=== PATIENT | male | born 1960 | race Caucasian/White ===

== ENCOUNTER 2017-02-22 13:12 | Emergency (ER) | payer OTHER ==
[~2017-02-22] VITALS: Ht 165.1 cm; Wt 67.0 kg
[2017-02-22 13:16] VITALS: BP 108/78; PULSE 77; RESP 16; TEMP 98.3; O2SAT 97
--- NOTE | 2017-02-22 13:31 | PD ---
HPI Chief Complaint: Skin Problem Time Seen by Provider: 13:22 Travel History International Travel<30 days: No Contact w/Intl Traveler<30days: No Traveled to known affect area: No History of Present Illness HPI 56-year-old male presents to the emergency department for evaluation of right hand fifth finger pain and swelling for 1 day. Patient states yesterday he was reaching for something on the top shelf in his shed with his right hand and felt a sudden pain in his right fifth finger. States "it felt as though a hammer fell on it" but denies anything falling or any traumatic injury to his finger. States he thinks maybe a spider bit his finger. States he has some redness and swelling to the distal aspect of the finger and that he's unable to straighten it at this location. He denies any fever, chills, numbness or tingling. No other complaints. PFSH Past Medical History Hx Anticoagulant Therapy: No Bipolar Disorder: Yes Depression: Yes Cancer: No Cardiovascular Problems: No Chemotherapy: No Cerebrovascular Accident: No Diabetes: No Diminished Hearing: Yes Endocrine: No Genitourinary: No Hepatitis: No Hiatal Hernia: No Hypertension: Yes (UNDX) Immune Disorder: No Musculoskeletal: No Neurologic: No Psychiatric: Yes Reproductive: No Respiratory: No Immunizations Current: No Thyroid Disease: No Past Surgical History AICD: No Joint Replacement: No Pacemaker: No Other Surgery: Yes (I & D - SCROTUM/PLASTIC SURGERY) Social History Alcohol Use: Yes Tobacco Use: Yes (1/2 PPD ) Substance Use: Yes (ALCOHOL) Allergies-Medications (Allergen,Severity, Reaction): Coded Allergies: No Known Allergies (Verified , 02/22/17) Reported Meds & Prescriptions Reported Meds & Active Scripts Active Naproxen 500 Mg Tab 500 Mg PO BID 10 Days Keflex (Cephalexin) 500 Mg Cap 500 Mg PO Q6H 10 Days Bactrim DS (Sulfamethoxazole-Trimethoprim) 800-160 Mg Tab 1 Tab PO BID Review of Systems Except as stated in HPI: all other systems reviewed are Neg Physical Exam Narrative GENERAL: Well-nourished and well-developed female patient in no acute distress who is nontoxic appearing. SKIN: Warm and dry. HEAD: Normocephalic and atraumatic. EYES: No injection, drainage, or hyphema noted. PERRLA. EOMI. ENT: No nasal drainage noted. Oropharynx is clear. NECK: Supple and the trachea is midline. CARDIOVASCULAR: Regular rate and rhythm. RESPIRATORY: Breath sounds are equal bilaterally with no accessory muscle use, wheezing, rhonchi, or crackles. EXTREMITY: Right hand fifth finger with swelling and erythema at the dorsal fifth finger. Limited active range of motion in the right fifth DIP joint over full active range of motion. Full range of motion in all other joints. Normal opposition of thumb. Distal extremity neurovascularly intact with intact two point discrimination. NEUROLOGICAL: Awake, alert, and oriented. Normal speech and gait. Cranial nerves are grossly intact. Data Data Last Documented VS Vital Signs Date Time Temp Pulse Resp B/P Pulse Ox O2 Delivery O2 Flow Rate FiO2 02/22/17 13:16 98.3 77 16 108/78 97 Orders Finger ([id number]) (02/22/17 13:22) [facility] Medical Decision Making Medical Screen Exam Complete: Yes Emergency Medical Condition: Yes Differential Diagnosis Sprain versus cellulitis versus tendinitis versus other Narrative Course 56-year-old male presents to the emergency department for evaluation of redness , swelling and pain of the right fifth finger for one day. Patient is afebrile , vital signs are stable. X-ray of the right fifth finger is negative for any acute abnormalities. The area is red and a little warm to touch, he may have some early infection. We'll place the patient on Bactrim and Keflex and place him in a finger splint. Discussed supportive care and when to return to the emergency department. Patient verbalizes understanding and agreement with treatment plan. I discussed the case with my attending physician Dr. Nance who is aware of the patients history, physical examination findings, and treatment plan. Diagnosis Primary Impression: Swelling of right little finger Referrals: Primary Care Physician Patient Instructions: General Instructions Additional Instructions: Finger splint. Take medications as prescribed with food and a full glass of water. Follow-up with your Primary Care Physician. Return to the ED for any acute worsening of symptoms. Med/Other Pt SpecificInfo: Prescription(s) given Scripts Naproxen 500 Mg [id number] Mg PO BID 10 Days Ref 0 Prov:Burton Nance MD 02/22/17 Cephalexin (Keflex)500 Mg [id number] Mg PO Q6H 10 Days Ref 0 Prov:Burton Nance MD 02/22/17 Sulfamethoxazole-Trimethoprim (Bactrim DS)800-160 Mg Tab1 Tab PO BID #20 TAB Ref 0 Prov:Burton Nance MD 02/22/17 Disposition: 01 DISCHARGE HOME Condition: Stable Yanna Pinto February 22, 2017 13:31
[2017-02-22] MEDS ORDERED: NAPR500T PO (13:42)
[2017-02-22] MEDS ORDERED: CEPH-460 PO (13:42)
[2017-02-22] MEDS ORDERED: BACT800T5 PO (13:42)
--- NOTE | 2017-02-22 13:43 | RADHPO ---
EXAM DATE/TIME: 02/22/2017 13:28 [facility] COMPARISON: No previous studies available for comparison. INDICATIONS : Right fifth digit pain and swelling after pulling boxes off a shelf MEDICAL HISTORY : None. SURGICAL HISTORY : None. ENCOUNTER: Initial ACUITY: 2 days PAIN SCORE: 6/10 LOCATION: Right entire fifth digit FINDINGS: Examination of the fifth digit of the right hand demonstrates no evidence of fracture or dislocation. No radiopaque foreign bodies are seen. The soft tissues are intact. CONCLUSION: Unremarkable examination of the right fifth finger. Bautista Chapman MD on February 22, 2017 at 13:41 Board Certified Radiologist. This report was verified electronically.
== END 2017-02-22 13:55 | disposition home or self-care (01) ==
LOC: PHEFT 13:12
DX: M79.89 Other specified soft tissue disorders (principal); I10 Essential (primary) hypertension; F17.210 Nicotine dependence, cigarettes, uncomplicated
CPT/HCPCS: 29130; 73140

== ENCOUNTER 2017-03-17 14:25 | Emergency (ER) | payer SELFPAY ==
[~2017-03-17] VITALS: Ht 167.6 cm; Wt 66.0 kg
[~2017-03-17 14:25] MED LIST: BACT800T5 PO; CEPH-460 PO; NAPR500T PO
[2017-03-17 14:27] VITALS: BP 153/83; PULSE 82; RESP 18; TEMP 99; O2SAT 97
--- NOTE | 2017-03-17 14:33 | PD ---
Physical Exam Time Seen by Provider: 14:31 Narrative 56 y/o male presents for right sided/substernal chest, arm pain which started this morning. Vital signs reviewed. Seen at triage desk. Awaiting bed placement. Data Data Last Documented VS Vital Signs Date Time Temp Pulse Resp B/P Pulse Ox O2 Delivery O2 Flow Rate FiO2 03/17/17 14:27 99.0 82 18 153/[address] [facility] Medical Record Reviewed: Yes Supervised Visit with ALICE: Francisco Melchor March 17, 2017 14:33
[2017-03-17 15:21] VITALS: PULSE 68; O2SAT 98
[2017-03-17] MEDS ORDERED: IBUP800T23 PO (15:21)
[2017-03-17] MEDS ORDERED: ROBA500T PO (15:21)
--- NOTE | 2017-03-17 15:25 | PD ---
HPI Chief Complaint: Musculoskeletal Complaint Time Seen by Provider: 15:18 Travel History International Travel<30 days: No Contact w/Intl Traveler<30days: No Traveled to known affect area: No History of Present Illness HPI 56-year-old male presents to emergency Department with complaint of right lateral rib cage pain that extends to his right thoracic back that he woke up with this morning. Denies injury. Denies heavy lifting or strain. Denies chest pain, shortness of breath, hemoptysis. Denies fever, vomiting. Has not taken any medications or or tried any treatments to alleviate his symptoms. Pain is worse with palpation and movement. Has no other medical complaints. No other modifying factors or associated signs and symptoms. PFSH Past Medical History Hx Anticoagulant Therapy: No Bipolar Disorder: Yes Depression: Yes Cancer: No Cardiovascular Problems: No Chemotherapy: No Cerebrovascular Accident: No Diabetes: No Diminished Hearing: Yes Endocrine: No Genitourinary: No Hepatitis: No Hiatal Hernia: No Hypertension: Yes (UNDX) Immune Disorder: No Musculoskeletal: No Neurologic: No Psychiatric: Yes Reproductive: No Respiratory: No Immunizations Current: No Thyroid Disease: No Past Surgical History AICD: No Joint Replacement: No Pacemaker: No Other Surgery: Yes (I & D - SCROTUM/PLASTIC SURGERY) Social History Alcohol Use: No (denies) Tobacco Use: Yes (1/2 PPD ) Substance Use: Yes (ALCOHOL) Allergies-Medications (Allergen,Severity, Reaction): Coded Allergies: No Known Allergies (Verified , 02/22/17) Reported Meds & Prescriptions Reported Meds & Active Scripts Active Robaxin (Methocarbamol) 500 Mg Tab 500 Mg PO QID PRN Ibuprofen 800 Mg Tab 800 Mg PO Q6HR PRN Naproxen 500 Mg Tab 500 Mg PO BID 10 Days Keflex (Cephalexin) 500 Mg Cap 500 Mg PO Q6H 10 Days Bactrim DS (Sulfamethoxazole-Trimethoprim) 800-160 Mg Tab 1 Tab PO BID Review of Systems Except as stated in HPI: all other systems reviewed are Neg Physical Exam Narrative GENERAL: Well-nourished, well-developed male patient, in no acute distress SKIN: Warm and dry. HEAD: Atraumatic. Normocephalic. EYES: Pupils equal and round. No scleral icterus. No injection or drainage. ENT: Mucosa pink and moist. NECK: Trachea midline. CHEST: Right lateral rib cage with reproducible tenderness that extends to the right thoracic back area; no crepitance or deformity. No retractions or use of accessory muscles. CARDIOVASCULAR: Regular rate and rhythm. No murmur appreciated. RESPIRATORY: No accessory muscle use. Clear to auscultation. Breath sounds equal bilaterally. No retractions or tachypnea. GASTROINTESTINAL: Flat. MUSCULOSKELETAL: No obvious deformities. No clubbing. No cyanosis. No edema. BACK: Tenderness to the right lateral musculature of the thoracic area. NEUROLOGICAL: Awake and alert. Oriented 3. No obvious cranial nerve deficits. Motor grossly within normal limits. Normal speech. Moves all extremities. 5/5 strength to all extremities. PSYCHIATRIC: Appropriate mood and affect; insight and judgment normal. Data Data Last Documented VS Vital Signs Date Time Temp Pulse Resp B/P Pulse Ox O2 Delivery O2 Flow Rate FiO2 03/17/17 15:21 68 98 03/17/17 14:27 99.0 18 153/83 Room Air Orders Electrocardiogram (03/17/17 ) Ketorolac Inj (Toradol Inj) (03/17/17 15:30) Orphenadrine Inj (Norflex Inj) (03/17/17 15:30) MDM Medical Decision Making Medical Screen Exam Complete: Yes Emergency Medical Condition: Yes Medical Record Reviewed: Yes Differential Diagnosis Muscle strain, rib cage pain, back strain Narrative Course 56-year-old male physical exam consistent with right-sided thoracic back pain and possible muscle strain. Patient denies injury. Pain is reproducible on palpation and with movement. I will treat the patient for possible muscle strain. Discussed reasons for the patient to return to the emergency department. Toradol and Norflex administered in the ER. Robaxin and ibuprofen prescribed for home. Patient verbalizes understanding and agreement with treatment plan. Patient is medically cleared and stable for discharge. Discussed reasons to return to the emergency department. Instructed patient to follow up with primary care provider. Patient agrees with treatment plan. The patients vital signs are stable and the patient is stable for outpatient follow- up and treatment. Patient discharged home, stable and in no acute distress. Diagnosis Primary Impression: Right-sided thoracic back pain Qualified Code: M54.6 - Right-sided thoracic back pain, unspecified chronicity Referrals: Primary Care Physician Patient Instructions: Chest Wall Pain (ED), General Instructions, Muscle Strain (ED) Departure Forms: Tests/Procedures, Work Release Enter return to work date: March 20, 2017 Additional Instructions: Tylenol or ibuprofen as directed and as needed to reduce pain Robaxin as prescribed for muscle spasms Get adequate rest Ice and/or heating pad to affected area to reduce pain Avoid aggravating activity; increase activity as tolerated Follow-up with primary care provider Return to the emergency department immediately with worsening symptoms, particularly as discussed Med/Other Pt SpecificInfo: Prescription(s) given Scripts Methocarbamol (Robaxin)500 Mg [id number] Mg PO QID PRN (MUSCLE SPASM) #30 TAB Ref 0 Prov:Yanna Anderson 03/17/17 Ibuprofen 800 Mg [id number] Mg PO Q6HR PRN (PAIN) #30 TAB Ref 0 Prov:Yanna Anderson 03/17/17 Disposition: 01 DISCHARGE HOME Condition: Stable Yanna Anderson March 17, 2017 15:25
[2017-03-17] MEDS ORDERED: KETOROLAC TROMETHAMINE 60 MG/2 ML (IM) VIAL IM ONE (15:30)
[2017-03-17] MEDS ORDERED: ORPHENADRINE INJ 60 MG/2 ML AMP IM ONE (15:30)
--- NOTE | 2017-03-18 16:33 | EKG ---
Date Performed: 03/17/2017 Time Performed: 14:42:28 PTAGE: 56 years EKG: Sinus rhythm LEFT ATRIAL ENLARGEMENT ABNORMAL ECG Since PREVIOUS TRACING 01/14/2015, atrial abnormalities are new, otherwise no significant marquez ge. PREVIOUS TRACIN01/14/2015 06.17 DOCTOR: Leonardo Jacobo Interpretating Date/Time 03/18/2017 16:30:51
== END 2017-03-17 15:57 | disposition home or self-care (01) ==
LOC: NEPD 14:25
DX: M54.6 Pain in thoracic spine (principal)
CPT/HCPCS: 93005; 96372; 99284; J1885; J2360

== ENCOUNTER 2017-03-29 22:49 | Emergency (ER) | payer SELFPAY ==
[~2017-03-29] VITALS: Ht 167.6 cm; Wt 64.5 kg
[~2017-03-29 22:49] MED LIST changes: +IBUP800T23 PO; +ROBA500T PO
[2017-03-29 22:55] VITALS: BP 157/95; PULSE 66; RESP 14; TEMP 98; O2SAT 98
--- NOTE | 2017-03-29 23:29 | PD ---
HPI Chief Complaint: Fall Time Seen by Provider: 23:22 Travel History International Travel<30 days: No Contact w/Intl Traveler<30days: No Traveled to known affect area: No History of Present Illness HPI 56-year-old male presents to the emergency department by private transportation for evaluation of right-sided rib pain status post fall. Reportedly at 10 AM this morning while climbing a ladder approximately 10 feet off ground he fell. Patient states he landed on a curb. Patient states he hit his head but did not have loss of consciousness. Patient denies any neck pain. Patient states due to persistent right-sided rib pain and coughing up blood just prior to arrival to the emergency department 5 decided to come to the emergency room for evaluation. Patient states he's taken no medication for symptom relief. Patient denies previous history of injury. Patient denies any abdominal pain. Patient does not report any shortness of breath. Patient rates pain 10 over 10 intensity. Patient is also experienced some dizziness. Patient does not report any upper extremity or lower extremity numbness tingling or weakness. No abdominal pain no pelvic pain. PFSH Past Medical History Narrative Medical Bipolar disorder depression hypertension nasal fracture right hip injury tendinitis scrotal I&D septoplasty alcohol use tobacco use nursing notes reviewed Hx Anticoagulant Therapy: No Bipolar Disorder: Yes Depression: Yes (HX OF SUICIDAL IDEATION) Cancer: No Cardiovascular Problems: No Chemotherapy: No Cerebrovascular Accident: No Diabetes: No Diminished Hearing: Yes Endocrine: No Genitourinary: No Hepatitis: No Hiatal Hernia: No Hypertension: Yes (UNDX) Immune Disorder: No Musculoskeletal: Yes (SINUS/NASAL FX: 12/31/14, RIGHT ROTATOR CUFF TENDINITIS) Neurologic: No Psychiatric: Yes Reproductive: No Respiratory: No Immunizations Current: No Thyroid Disease: No Influenza Vaccination: No Past Surgical History AICD: No Genitourinary Surgery: Yes (SCROTAL I+D) Joint Replacement: No Pacemaker: No Other Surgery: Yes (wrist, nasal plastic sx) Social History Alcohol Use: Yes ("ONCE A WEEK") Tobacco Use: Yes ( a pk every 3 days) Substance Use: No Allergies-Medications (Allergen,Severity, Reaction): Coded Allergies: No Known Allergies (Verified , 03/29/17) Reported Meds & Prescriptions Reported Meds & Active Scripts Active Robaxin (Methocarbamol) 750 Mg Tab 750 Mg PO Q6HR Ibuprofen 800 Mg Tab 800 Mg PO Q6HR PRN Review of Systems Except as stated in HPI: all other systems reviewed are Neg General / Constitutional: No: Fever, Chills Eyes: No: Visual changes HENT: No: Headaches, Neck Pain Cardiovascular: Positive: Chest Pain or Discomfort, No: Diaphoresis, Syncope Respiratory: Positive: Pleuritic Pain, No: Shortness of Breath Gastrointestinal: No: Nausea, Abdominal Pain Genitourinary: No: Hematuria, Flank Pain Musculoskeletal: Positive: Myalgias, Arthralgias Skin: No Rash Neurologic: No: Weakness Psychiatric: No: Anxiety Hematologic/Lymphatic: No: Lymph Node Enlargement Physical Exam Narrative GENERAL: Well-developed well-nourished male in acute distress no respiratory distress; GCS 15 SKIN: Warm and dry. HEAD: Atraumatic. Normocephalic. No scalp soft tissue swelling or bony step- off no abrasion or laceration. EYES: Pupils equal and round. Extraocular muscles intact. No scleral icterus. No injection or drainage. ENT: No nasal bleeding or discharge. Mucous membranes pink and moist. NECK: Trachea midline. No JVD. No midline tenderness to direct palpation along the cervical spine no bony step-off CARDIOVASCULAR: Regular rate and rhythm. Chest wall: Tender to palpation along the right lateral anterior chest wall without ecchymosis abrasion crepitus bony point tenderness or step-off. RESPIRATORY: No accessory muscle use. Clear to auscultation. Breath sounds equal bilaterally. GASTROINTESTINAL: Abdomen soft, non-tender, nondistended. Hepatic and splenic margins not palpable. MUSCULOSKELETAL: Extremities without clubbing, cyanosis, or edema. No obvious deformities. NEUROLOGICAL: Awake and alert. No obvious cranial nerve deficits. Motor grossly within normal limits. Five out of 5 muscle strength in the arms and legs. Normal speech. PSYCHIATRIC: Appropriate mood and affect; insight and judgment normal. Data Data Last Documented VS Vital Signs Date Time Temp Pulse Resp B/P Pulse Ox O2 Delivery O2 Flow Rate FiO2 03/30/17 00:23 57 16 148/80 98 Room Air 03/29/17 22:55 98.0 Orders ^ Saline Lock (03/29/17 23:22) Ribs, Uni (W/Exp Cxr-Min 3vw) (03/29/17 ) Ct Brain W/O Iv Contrast(Rout) (03/29/17 ) Ct Cerv Spine W/O Contrast (03/29/17 ) Comprehensive Metabolic Panel (03/29/17 23:22) Urinalysis - C+S If Indicated (03/29/17 23:22) Alcohol (Ethanol) (03/29/17 23:22) Magnesium (Mg) (03/29/17 23:22) Ketorolac Inj (Toradol Inj) (03/30/17 00:30) Sodium Chlor 0.9% 1000 Ml Inj (Ns 1000 M (03/30/17 00:30) Acetamin-Hydrocod 325-5 Mg ([place] 5-325 (03/30/17 01:00) Labs Laboratory Tests Test 03/29/17 23:35 Urine Color YELLOW Urine Turbidity CLEAR Urine pH 5.5 Urine Specific Bell 1.017 Urine Protein NEG mg/dL Urine Glucose (UA) NEG mg/dL Urine Ketones NEG mg/dL Urine Occult Blood NEG Urine Nitrite NEG Urine Bilirubin NEG Urine Leukocyte Esterase NEG Urine RBC 0-2 /hpf Urine WBC 0-2 /hpf Urine Squamous Epithelial 0-5 /hpf Cells Urine Bacteria NONE /hpf Microscopic Urinalysis Comment CULT NOT INDICATED Sodium Level 140 MEQ/L Potassium Level 4.1 MEQ/L Chloride Level 107 MEQ/L Carbon Dioxide Level 24.4 MEQ/L Anion Gap 9 MEQ/L Blood Urea Nitrogen 15 MG/DL Creatinine 1.10 MG/DL Estimat Glomerular Filtration 70 ML/MIN Rate Random Glucose 95 MG/DL Calcium Level 9.0 MG/DL Magnesium Level 2.5 MG/DL Total Bilirubin 0.1 MG/DL Aspartate Amino Transf 22 U/L (AST/SGOT) Alanine Aminotransferase 24 U/L (ALT/SGPT) Alkaline Phosphatase 67 U/L Total Protein 7.7 GM/DL Albumin 3.7 GM/DL Ethyl Alcohol Level LESS THAN 3 MG/DL MDM Medical Decision Making Medical Screen Exam Complete: Yes Emergency Medical Condition: Yes Medical Record Reviewed: Yes Interpretation(s) Urinalysis: Values within normal limits no blood Complete metabolic panel with magnesium: Values in normal range Serum alcohol: Less than 3, not elevated Vital Signs Date Time Temp Pulse Resp B/P Pulse Ox O2 Delivery O2 Flow Rate FiO2 03/30/17 00:23 57 16 148/80 98 Room Air 03/29/17 23:13 Room Air 03/29/17 22:55 98.0 66 14 157/95 98 Right rib xr: nabi no pneumothorax CT brain w/o: No trauma bleed or fracture per reading radiologist CT cervical spine without contrast no fracture or acute bony abnormality per reading radiologist Differential Diagnosis Rib contusion, rib fracture, pneumothorax, ICH, CHI, intra-abdominal contusion, flank/renal contusion Narrative Course IV access obtained specimens collected and sent for resulting imaging studies ordered Patient administered IV Toradol and IV fluids Rib x-ray reveals no pneumothorax or displaced rib fracture; suspect possible occult or hairline fracture of the ribs due to mechanism of injury causing chest wall pain/pleuritic pain encouraged to return immediately to the emergency department for sudden onset shortness of breath or rib pain after forceful cough sneeze or twisting movement as may need repeat imaging to exclude pneumothorax. Patient given Lortab times one dose Patient stable for outpatient management Diagnosis Primary Impression: Chest wall contusion Qualified Code: S20.211A - Chest wall contusion, right, initial encounter Additional Impressions: Minor head injury without loss of consciousness Qualified Code: S09.90XA - Minor head injury without loss of consciousness, initial encounter Fall Qualified Code: W19.XXXA - Fall, initial encounter Referrals: [facility] call for appointment Primary Care Physician call for appointment Patient Instructions: General Instructions Additional Instructions: Use ice intermittently to areas of soft tissue swelling and injury fever started to 24 hours then moist heat May use as tolerated acetaminophen and/or ibuprofen per package directions for pain or for fever 100.4F or greater May use muscle relaxant as prescribed as needed per prescription directions Do not drink alcoholic beverages if taking muscle relaxant Follow-up with primary care provider or [facility] clinic Return to the emergency department for any concerns or change in condition; return immediately to the nearest emergency department for sudden onset shortness breath after forceful cough, sneeze, laugh, or twisting type motion causing increased pain to the chest wall. No work 3 days Med/Other Pt SpecificInfo: Prescription(s) given Scripts Methocarbamol (Robaxin)750 Mg [id number] Mg PO Q6HR #12 TAB Ref 0 Prov:Rosalind Knight MD 03/30/17 Disposition: 01 DISCHARGE HOME Condition: Stable Rosalind Knight MD Mar 29, 2017 23:29
[2017-03-29 23:47] LABS: BLOOD, URINE NEG (NEG); GLUCOSE,URINE NEG (NEG); KETONE, URINE NEG (NEG); NITRITE,URINE NEG (NEG); PH, URINE 5.5 (5.0-8.5)
[2017-03-29 23:58] LABS: CHLORIDE 107 MEQ/L (98-107); POTASSIUM 4.1 MEQ/L (3.5-5.1); SODIUM (NA) 140 MEQ/L (136-145)
[2017-03-29 23:59] LABS: URINE COLOR YELLOW (YELLW/STRAW)
[2017-03-30] LABS: COMMENT (UR) CULT NOT INDICATED; CULTURE IF INDICATED CULT NOT INDICATED; RBC, URINE 0-2 /hpf (0-3); SQUAMOUS EPITHELIAL CELL URINE 0-5 /hpf (0-5); WBC, URINE 0-2 /hpf (0-5)
[2017-03-30 00:02] LABS: ANION GAP 9 MEQ/L (5-15); BICARBONATE 24.4 MEQ/L (21.0-32.0); BLOOD UREA NITROGEN 15 MG/DL (7-18); MAGNESIUM 2.5 MG/DL (1.5-2.5)
[2017-03-30 00:04] LABS: ALT (GPT) 24 U/L (12-78); AST (GOT) 22 U/L (15-37)
[2017-03-30 00:05] LABS: GLOMERULAR FILTRATION RATE 70 ML/MIN (>89)
[2017-03-30 00:06] LABS: TOTAL BILIRUBIN ADULT 0.1 MG/DL (0.2-1.0)
[2017-03-30 00:07] LABS: ALKALINE PHOSPHATASE 67 U/L (45-117)
--- NOTE | 2017-03-30 00:07 | RADHPO ---
EXAM DATE/TIME: 03/29/2017 23:36 [facility] COMPARISON: No previous studies available for comparison. INDICATIONS : Right sided rib pain post fall from ladder today MEDICAL HISTORY : None. SURGICAL HISTORY : None. ENCOUNTER: Initial ACUITY: 1 day PAIN SCORE: 10/10 LOCATION: Right lower anterior and axillary ribs FINDINGS: Multiple views of the right ribs were performed. There is no evidence of displaced fracture. No melinda tructive lesions or areas of periosteal thickening are seen. Expiratory view of the chest is negativ e for pneumothorax. The mediastinal structures are midline. CONCLUSION: Unremarkable examination of the right ribs and chest. Burton Fink MD on March 30, 2017 at 0:05 Board Certified Radiologist. This report was verified electronically.
--- NOTE | 2017-03-30 00:10 | RADHPO ---
EXAM DATE/TIME: 03/29/2017 23:40 [facility] COMPARISON: CT BRAIN W/O CONTRAST, December 31, 2014, 8:52. INDICATIONS : Trauma, fall from ladder. RADIATION DOSE: 64.10 CTDIvol (mGy) MEDICAL HISTORY : None SURGICAL HISTORY : None. ENCOUNTER: Initial ACUITY: 1 day PAIN SCALE: 0/10 LOCATION: cranial TECHNIQUE: Multiple contiguous axial images were obtained of the head. Using automated exposure control and adj ustment of the mA and/or kV according to patient size, radiation dose was kept as low as reasonably a chievable to obtain optimal diagnostic quality images. FINDINGS: CEREBRUM: The ventricles are normal for age. No evidence of midline shift, mass lesion, hemorrhage or acute in farction. No extra-axial fluid collections are seen. POSTERIOR FOSSA: The cerebellum and brainstem are intact. The 4th ventricle is midline. The cerebellopontine angle i s unremarkable. EXTRACRANIAL: The visualized portion of the orbits is intact. SKULL: The calvaria is intact. No evidence of skull fracture. CONCLUSION: Normal examination. Burton Fink MD on March 30, 2017 at 0:08 Board Certified Radiologist. This report was verified electronically.
--- NOTE | 2017-03-30 00:11 | RADHPO ---
EXAM DATE/TIME: 03/29/2017 23:40 [place] COMPARISON: CT CERVICAL SPINE W/O CONTRAST, December 31, 2014, 8:52. INDICATIONS : Trauma, fall. RADIATION DOSE: 26.15 CTDIvol (mGy) MEDICAL HISTORY : None SURGICAL HISTORY : None. ENCOUNTER: Initial ACUITY: 1 day PAIN SCALE: 0/10 LOCATION: neck TECHNIQUE: Volumetric scanning of the cervical spine was performed. Multiplanar reconstructions in the sagittal, coronal and oblique axial planes were performed. Using automated exposure control and adjustment o f the mA and/or kV according to patient size, radiation dose was kept as low as reasonably achievable to obtain optimal diagnostic quality images. FINDINGS: VERTEBRAE: Normal vertebral body height. ALIGNMENT: No evidence of subluxation. C2-C3: The bony spinal canal is normal in size. No evidence of disc bulge or herniation. The neural forami na are bilaterally patent. C3-C4: The bony spinal canal is normal in size. No evidence of disc bulge or herniation. The neural forami na are bilaterally patent. C4-C5: The bony spinal canal is normal in size. No evidence of disc bulge or herniation. The neural forami na are bilaterally patent. C5-C6: The bony spinal canal is normal in size. No evidence of disc bulge or herniation. The neural forami na are bilaterally patent. C6-C7: The bony spinal canal is normal in size. No evidence of disc bulge or herniation. The neural forami na are bilaterally patent. C7-T1: The bony spinal canal is normal in size. No evidence of disc bulge or herniation. The neural forami na are bilaterally patent. CONCLUSION: Normal examination. Burton Fink MD on March 30, 2017 at 0:10 Board Certified Radiologist. This report was verified electronically.
[2017-03-30 00:23] VITALS: BP 148/80; PULSE 57; RESP 16; O2SAT 98
[2017-03-30] MEDS ORDERED: SODIUM CHLOR 0.9% 1000 ML INJ 1,000 ML IV ONE (00:30)
[2017-03-30] MEDS ORDERED: KETOROLAC TROMETHAMINE 30 MG/ML (IVP) VIAL IV PUSH ONE (00:30)
[2017-03-30] MEDS ORDERED: ROBA750T PO (00:33)
[2017-03-30] MEDS ORDERED: ACETAMINOPHEN/HYDROcodone 325 MG/5 MG TAB PO ONE (01:00)
== END 2017-03-30 01:00 | disposition home or self-care (01) ==
LOC: PHED 22:49
DX: S20.211A Contusion of right front wall of thorax, initial encounter (principal); S09.90XA Unspecified injury of head, initial encounter; W11.XXXA Fall on and from ladder, initial encounter
CPT/HCPCS: 70450; 71101; 72125; 80053; 80307; 81001; 83735; 96374; 99285; J1885; J7030

== ENCOUNTER 2018-05-17 00:36 | Observation (INO) ==
[2018-05-17] MEDS ORDERED: Sodium Chlor 0.9% Inj 500 ML IV.SIG ONE (00:40)
[2018-05-17] MEDS ORDERED: Morphine Inj 4 MG/ML Vial IV.PUSH ONE (00:40)
--- NOTE | 2018-05-17 00:45 | ED ---
HPI General Chief Complaint: Chest Pain Stated Complaint: Cardiac Time Seen by Provider: 05/17/18 00:40 Source: patient Mode of arrival: EMS Limitations: no limitations History of Present Illness HPI narrative: Patient called 911 as he was experiencing an onset of substernal chest pressure rated as an 8 out of 10 while he was at rest, upon arrival of EMS , patient was given aspirin 324 mg p.o., and 2 nitroglycerin sprays the patient' s pain did not seem to decrease much it only decreased down to 6 out of 10 by the time he arrived at the ER. Patient states that the last time he had a stress test was over 10 years ago. He has not followed up with any exceptional children teacher nor with does he have any primary care physicians at this time. Patient does smoke half a pack a day of cigarettes MD complaint: chest pain Complete Quality Measures for STEMI Alert Patients STEMI Alert: No Onset (ago): hour(s) (1) Duration: constant and progressively worsening Onset: during rest Pain location: substernal and left chest Severity: moderate Severity scale (1-10): 8 Quality: tightness Pain radiation: none Relieving factors: nothing Exacerbating factors: nothing Treatments prior to arrival chest pain: aspirin and nitroglycerin Related Data Allergies Allergy/AdvReac Type Severity Reaction Status Date / Time No Known Allergies Allergy Uncoded 03/29/17 22:58 Review of Systems Except as stated in HPI: all other systems reviewed are negative PMFSH History History Provided By: Patient Social History Social History Substance History: No History of Abuse Second Hand Smoke Exposure: No Smoking Status: Current every day smoker Tobacco Type: Cigarettes How Often Do You Have a Drink Containing Alcohol: 4 or more times a week Recent Travel in [facility] within the Last 8 Weeks: No Recent Out of Country Travel within the Last 8 Weeks: No Exam Narrative Exam Narrative: GENERAL: Well-nourished, well-developed patient in no apparent distress. SKIN: Warm and dry. HEAD: Atraumatic. Normocephalic. EYES: Pupils equal and round. No scleral icterus. No injection or drainage. ENT: No nasal bleeding or discharge. Mucous membranes pink and moist. NECK: Trachea midline. No JVD. CARDIOVASCULAR: Regular rate and rhythm. no rubs or gallops RESPIRATORY: No accessory muscle use. Clear to auscultation. Breath sounds equal bilaterally. GASTROINTESTINAL: Abdomen soft, non-tender, nondistended. No rebound or guarding MUSCULOSKELETAL: Extremities without clubbing, cyanosis, or edema. No obvious deformities. NEUROLOGICAL: Awake and alert. No obvious cranial nerve deficits. Motor grossly within normal limits. Five out of 5 muscle strength in the arms and legs. Normal speech. PSYCHIATRIC: Appropriate mood and affect; insight and judgment normal. Course Initial Documented Vital Signs Pulse Rate 75 05/17/18 00:47 Respiratory Rate 20 05/17/18 00:47 Blood Pressure 127/65 05/17/18 00:47 Pulse Oximetry 98 05/17/18 00:47 Last Documented Vital Signs Pulse Rate 75 05/17/18 00:47 Respiratory Rate 20 05/17/18 00:47 Blood Pressure 127/65 05/17/18 00:47 Pulse Oximetry 98 05/17/18 01:03 Medical Decision Making MDM Narrative Medical decision making narrative: CBC interpreted as no leukocytosis, no left shift, normal platelet count, no anemia Coagulation profile within normal limits D-dimer negative First set of cardiac enzymes negative Electrolytes are within normal limits, normal liver kidney and pancreatic functions Differential Diagnosis Differential Diagnosis: Thorax versus PA versus non-STEMI Lab Data Lab results reviewed: Yes I reviewed the patient's lab results. Result diagrams: 05/17/18 00:45 05/17/18 00:45 Lab Results 05/17/18 05/17/18 05/17/18 Range/Units 00:45 00:45 00:45 WBC 8.4 (4.0-11.0) th/mm3 RBC 4.95 (4.50-5.90) mil/mm3 Hgb 14.8 (13.0-17.0) gm/dL Hct 44.0 (39.0-51.0) % MCV 88.9 (80.0-100.0) fL MCH 30.0 (27.0-34.0) pg MCHC 33.8 (32.0-36.0) % RDW 14.7 (11.6-17.2) % Plt Count 240 (150-450) th/mm3 MPV 7.9 (7.0-11.0) fL Neut % (Auto) 62.7 (16.0-70.0) % Lymph % (Auto) 26.0 (9.0-44.0) % Roane % (Auto) 9.0 H (0.0-8.0) % Eos % (Auto) 1.5 (0.0-4.0) % Baso % (Auto) 0.8 (0.0-2.0) % Neut # (Auto) 5.3 (1.8-7.7) th/mm3 Lymph # (Auto) 2.2 (1.0-4.8) th/mm3 Roane # (Auto) 0.8 (0.0-0.9) th/mm3 Eos # (Auto) 0.1 (0.0-0.4) th/mm3 Baso # (Auto) 0.1 (0.0-0.2) th/mm3 WBC Differential . Differential Comment Auto diff final PT 10.2 (9.8-11.6) sec INR 1.0 Ratio APTT 29.2 (24.3-30.1) sec D-Dimer Quant (PE/DVT) 0.42 (0.00-0.50) mg/L FEU Sodium (136-145) meq/L Potassium (3.5-5.1) meq/L Chloride (98-107) meq/L Carbon Dioxide (21.0-32.0) meq/L Anion Gap (5-15) meq/L BUN (7-18) mg/dL Creatinine (0.60-1.30) mg/dL Estimated GFR (>89) mL/min Random Glucose (74-106) mg/dL Calcium (8.5-10.1) mg/dL Total Bilirubin (0.2-1.0) mg/dL AST (15-37) U/L ALT (12-78) U/L Alkaline Phosphatase (45-117) U/L Total Creatine Kinase (39-308) U/L CK-MB (CK-2) (0.5-3.6) ng/mL Troponin I (0.02-0.05) ng/mL B-Natriuretic Peptide 15 (0-100) pg/mL Total Protein (6.4-8.2) g/dL Albumin (3.4-5.0) g/dL Lipase (73-393) U/L 05/17/18 Range/Units 00:45 WBC (4.0-11.0) th/mm3 RBC (4.50-5.90) mil/mm3 Hgb (13.0-17.0) gm/dL Hct (39.0-51.0) % MCV (80.0-100.0) fL MCH (27.0-34.0) pg MCHC (32.0-36.0) % RDW (11.6-17.2) % Plt Count (150-450) th/mm3 MPV (7.0-11.0) fL Neut % (Auto) (16.0-70.0) % Lymph % (Auto) (9.0-44.0) % Roane % (Auto) (0.0-8.0) % Eos % (Auto) (0.0-4.0) % Baso % (Auto) (0.0-2.0) % Neut # (Auto) (1.8-7.7) th/mm3 Lymph # (Auto) (1.0-4.8) th/mm3 Roane # (Auto) (0.0-0.9) th/mm3 Eos # (Auto) (0.0-0.4) th/mm3 Baso # (Auto) (0.0-0.2) th/mm3 WBC Differential Differential Comment PT (9.8-11.6) sec INR Ratio APTT (24.3-30.1) sec D-Dimer Quant (PE/DVT) (0.00-0.50) mg/L FEU Sodium 140 (136-145) meq/L Potassium 3.5 (3.5-5.1) meq/L Chloride 104 (98-107) meq/L Carbon Dioxide 23.1 (21.0-32.0) meq/L Anion Gap 13 (5-15) meq/L BUN 17 (7-18) mg/dL Creatinine 1.27 (0.60-1.30) mg/dL Estimated GFR 59 L (>89) mL/min Random Glucose 76 (74-106) mg/dL Calcium 9.0 (8.5-10.1) mg/dL Total Bilirubin 0.6 (0.2-1.0) mg/dL AST 24 (15-37) U/L ALT 24 (12-78) U/L Alkaline Phosphatase 65 (45-117) U/L Total Creatine Kinase 158 (39-308) U/L CK-MB (CK-2) 1.5 (0.5-3.6) ng/mL Troponin I Less than 0.02 L (0.02-0.05) ng/mL B-Natriuretic Peptide (0-100) pg/mL Total Protein 7.6 (6.4-8.2) g/dL Albumin 3.9 (3.4-5.0) g/dL Lipase 73 (73-393) U/L Imaging Data My impression: Again due to technical difficulties radiology reports are not crossing over into the E HR Chest x-ray read by radiologist as no acute cardiopulmonary process Radiologist's impression: Chest X-Ray 05/17/18 00:40 CONCLUSION: ECG Data EKG Prior to Arrival: Yes Attestation: I personally reviewed and interpreted this ECG as follows: Prior ECG tracings: not available for review Interpretation: Due to Neto incompatibility am unable to review any previous EKGs or even after available He she shows normal sinus rhythm, 70 bpm, left atrial enlargement, normal intervals, no evidence of any ST elevation PA pattern Discharge Plan Discharge Disposition Patient Disposition: 30 Still Patient Discharge Condition Condition: Stable Discharge Details Diagnosis: Chest pain, rule out acute myocardial infarction Physicians Team ED Provider: Alex Colon Primary Care Provider: Primary Care Stepheni,No Discharge Instructions Patient Printed Instructions: Chest Pain (ED) Status ED Status: With Doctor
[2018-05-17 01:03] LABS: Baso # (Auto) 0.1 th/mm3 (0.0-0.2); Baso % (Auto) 0.8 % (0.0-2.0); Eos # (Auto) 0.1 th/mm3 (0.0-0.4); Eos % (Auto) 1.5 % (0.0-4.0); Hemoglobin 14.8 gm/dL (13.0-17.0); Lymph # (Auto) 2.2 th/mm3 (1.0-4.8); Mean Corpuscular HGB Conc 33.8 % (32.0-36.0); Mean Corpuscular Volume 88.9 fL (80.0-100.0); Mean Platelet Volume 7.9 fL (7.0-11.0); Mono # (Auto) 0.8 th/mm3 (0.0-0.9); Neut # (Auto) 5.3 th/mm3 (1.8-7.7); Neut % (Auto) 62.7 % (16.0-70.0); Platelet Count 240 th/mm3 (150-450); Red Blood Count 4.95 mil/mm3 (4.50-5.90); Red Cell Distribution Width 14.7 % (11.6-17.2); White Blood Count 8.4 th/mm3 (4.0-11.0)
--- NOTE | 2018-05-17 01:04 | XR ---
EXAM DATE: 05/17/2018 1:00 AM EDT AGE/SEX: 57 years / Male INDICATIONS: Shortness of breath. CLINICAL DATA: This is the patient's initial encounter. Patient reports that signs and symptoms have been present for 1 day and indicates a pain score of 0/10. MEDICAL/SURGICAL HISTORY: None. None. COMPARISON: [facility], RIBS RIGHT(W PA CXR MIN 3VWS), 03/29/2017. . FINDINGS: A single AP view of the chest demonstrates the lungs to be symmetrically aerated without evidence of mass, infiltrate or effusion. The cardiomediastinal contours are unremarkable. Osseous structures a re intact. CONCLUSION: No acute cardiopulmonary process. Electronically signed by: Jordan Luu MD 05/17/2018 1:02 AM EDT
[2018-05-17 01:15] LABS: Activated Partial Thrombo Time 29.2 sec (24.3-30.1); Prothrombin Time 10.2 sec (9.8-11.6)
[2018-05-17 01:20] LABS: D-Dimer 0.42 mg/L FEU (0.00-0.50)
[2018-05-17 01:29] LABS: Alanine Aminotransferase 24 U/L (12-78); Albumin 3.9 g/dL (3.4-5.0); Anion Gap 13 meq/L (5-15); Aspartate Aminotransferase 24 U/L (15-37); Blood Urea Nitrogen 17 mg/dL (7-18); Carbon Dioxide 23.1 meq/L (21.0-32.0); Chloride 104 meq/L (98-107); Glomerular Filtration Rate 59 mL/min (>89); Glucose,Random 76 mg/dL (74-106); Lipase 73 U/L (73-393); Potassium 3.5 meq/L (3.5-5.1); Sodium 140 meq/L (136-145)
[2018-05-17 01:33] LABS: Alkaline Phosphatase 65 U/L (45-117); Creatine Kinase 158 U/L (39-308); Total Protein 7.6 g/dL (6.4-8.2)
[2018-05-17 01:45] LABS: Creatine Kinase MB 1.5 ng/mL (0.5-3.6)
[2018-05-17] MEDS ORDERED: Sod Chloride 0.9% Inj 1,000 ML IV.CONT SCH (02:15)
[2018-05-17] MEDS ORDERED: Enoxaparin Inj 30 MG/0.3 ML Syringe SQ SCH ×2 (02:15→08:15)
[2018-05-17 05:09] LABS: Creatine Kinase 83 U/L (39-308)
[2018-05-17 08:35] LABS: Troponin I 0.02 ng/mL (0.02-0.05)
[2018-05-17] MEDS ORDERED: Ketorolac Inj 30 MG/ML (IVP) Vial IV.PUSH ONE (09:00)
--- NOTE | 2018-05-17 09:04 | P.HPCA ---
History of Present Illness Primary Care Physician: No Primary Care Physician Chief Complaint: Chest pain History of Present Illness: This is a 57-year-old male the presents to ED via [facility] with complaint of chest discomfort that began while he is riding on a [employer] bus. States the discomfort is still there. Describes it as a sharp and squeezing discomfort in left side of his chest. Found that it is worsened when he touches the area if he makes certain movements. It is improved a little bit when he lies on his left side. He has been intermittently short of breath and nauseous with it. No diaphoresis. Denies history of CAD. States he has had a stress test in the past and upon reviewing records he had a nonischemic Urban protocol ETT in 2010. Denies recent illness. Denies fevers or chills. Patient smoking about one half pack of cigarettes a day for the last 2 years prior that he smoked on average 1 pack a series daily for 30 years. He drinks an average 12 pack of beer per week. Denies illicit drug use. Denies family history of CAD. - Diagnosis (1) Chest pain (2) Tobacco abuse Review of Systems General: Patient denies fevers, chills, and recent travel. HEENT: Patient denies headache, sore throat, difficulty swallowing. Cardiovascular: Has the chest discomfort as mentioned above. Denies sensation of heart beating rapidly or irregularly. No syncope. Denies diaphoresis. Respiratory: He was short of breath. Denies inspirational chest discomfort. Denies coughing wheezing or hemoptysis. GI: He was nauseous. Patient denies vomiting, diarrhea, abdominal pain, bloody stools. Musculoskeletal: Patient denies joint pain or edema. Denies calf pain or edema. Neurovascular: Patient denies numbness, tingling, weakness in extremities. Denies headache. Endocrine: Denies polyuria and polydipsia. Hematologic: Denies easy bruising. Skin: Denies rash or itching. PMFSH - History History Provided By: Patient - Tobacco History Second Hand Smoke Exposure: No Tobacco Use In Past 30 Days: Yes Smoking Status: Current every day smoker Tobacco Type: Cigarettes - Alcohol History How Often Do You Have a Drink Containing Alcohol: 4 or more times a week - Substance Use History Substance History: No History of Abuse - Travel History Recent Travel in the [place] Within the Last 8 Weeks: No Recent Travel Out of the Country Within the Last 8 Weeks: No - Immunization History Tetanus Immunization: Unsure Hx Influenza Vaccine This Season: No Medications and Allergies Active Medications: Active Medications Albuterol (Duoneb Neb (Prn)) 1 ampul NEB Q4HR NEB PRN PRN Reason: SHORTNESS OF BREATH/WHEEZING Last Admin: 05/17/18 08:49 Dose: 1 ampul Sodium Chloride (Ns Inj) 1,000 mls @ 100 mls/hr IV.CONT .Q10H LINSEY Last Admin: 05/17/18 03:35 Dose: 100 mls/hr Ketorolac Tromethamine (Toradol Inj) 30 mg IV.PUSH ONCE ONE Stop: 05/17/18 09:01 Sodium Chloride (Ns Flush) 2 ml IV.FLUSH BID LINSEY Sodium Chloride (Ns Flush) 2 ml IV.FLUSH PRN PRN PRN Reason: FLUSH AFTER USING IV ACCESS Allergies Allergy/AdvReac Type Severity Reaction Status Date / Time No Known Allergies Allergy Uncoded 03/29/17 22:58 Exam Vital signs: Vital Signs 05/17/18 00:47 05/17/18 00:52 05/17/18 01:03 Temperature Pulse Rate 75 Respiratory Rate 20 Blood Pressure 127/65 Pulse Oximetry 98 98 98 05/17/18 02:25 05/17/18 03:13 05/17/18 03:58 Temperature 98.5 F Pulse Rate 55 L Respiratory Rate 16 18 Blood Pressure 127/79 Pulse Oximetry 98 100 05/17/18 08:50 05/17/18 08:51 Temperature Pulse Rate 64 Respiratory Rate Blood Pressure Pulse Oximetry 97 Intake & Output 05/16/18 05/17/18 05/17/18 18:59 06:59 18:59 Weight 61.51 kg Other: Weight On Admission 61.51 kg Narrative: GENERAL: This is a well-nourished, well-developed patient, in no apparent distress. Patient speaks in clear complete sentences. Patient is pleasant. HEENT: Head is atraumatic and normocephalic. Neck is supple without lymphadenopathy and trachea is midline. No JVD or carotid bruits. CARDIOVASCULAR: Regular rate and rhythm without murmurs, gallops, or rubs. RESPIRATORY: Scattered expiratory wheezing. Breath sounds equal bilaterally. No rales or rhonchi. Chest wall is tender worsening discomfort that brought him into the ED. No use of accessory muscles. GASTROINTESTINAL: Abdomen is nontender, nondistended. Abdomen soft. No obvious pulsatile mass or bruit. No CVA tenderness. Strong femoral pulses bilaterally. Normal bowel sounds in all quadrants. MUSCULOSKELETAL: Patient is moving upper and lower extremities freely. No calf tenderness or edema, no Homans sign. Strong pulses in upper and lower extremities. NEUROLOGICAL: Patient is alert and oriented. Cranial nerves 2-12 are grossly intact. No focal deficits and speech is clear. SKIN: No rash and turgor is normal. Results 05/17/18 00:45 05/17/18 00:45 Cardiac Enzymes 05/17/18 05/17/18 05/17/18 Range/Units 00:45 00:45 03:59 AST 24 (15-37) U/L CK-MB (CK-2) 1.5 (0.5-3.6) ng/mL Troponin I Less than 0.02 L Less than 0.02 L (0.02-0.05) ng/mL B-Natriuretic Peptide 15 (0-100) pg/mL 05/17/18 Range/Units 07:37 AST (15-37) U/L CK-MB (CK-2) (0.5-3.6) ng/mL Troponin I 0.02 (0.02-0.05) ng/mL B-Natriuretic Peptide (0-100) pg/mL Coagulation 05/17/18 05/17/18 Range/Units 00:45 00:45 PT 10.2 (9.8-11.6) sec APTT 29.2 (24.3-30.1) sec B-Natriuretic Peptide 15 (0-100) pg/mL CBC 05/17/18 Range/Units 00:45 WBC 8.4 (4.0-11.0) th/mm3 RBC 4.95 (4.50-5.90) mil/mm3 Hgb 14.8 (13.0-17.0) gm/dL Hct 44.0 (39.0-51.0) % Plt Count 240 (150-450) th/mm3 Neut # (Auto) 5.3 (1.8-7.7) th/mm3 Lymph # (Auto) 2.2 (1.0-4.8) th/mm3 [place] # (Auto) 0.8 (0.0-0.9) th/mm3 Eos # (Auto) 0.1 (0.0-0.4) th/mm3 Baso # (Auto) 0.1 (0.0-0.2) th/mm3 Comprehensive Metabolic Panel 05/17/18 Range/Units 00:45 Sodium 140 (136-145) meq/L Potassium 3.5 (3.5-5.1) meq/L Chloride 104 (98-107) meq/L Carbon Dioxide 23.1 (21.0-32.0) meq/L BUN 17 (7-18) mg/dL Creatinine 1.27 (0.60-1.30) mg/dL Calcium 9.0 (8.5-10.1) mg/dL AST 24 (15-37) U/L ALT 24 (12-78) U/L Alkaline Phosphatase 65 (45-117) U/L Total Protein 7.6 (6.4-8.2) g/dL Albumin 3.9 (3.4-5.0) g/dL Intake and Output 05/16/18 05/17/18 05/17/18 22:59 06:59 14:59 Other: Weight 61.51 kg Weight On Admission 61.51 kg EKG interpretations - EKG EKG shows: sinus rhythm (EKGs a sinus rhythm without significant ST segment depressions or elevations.) Caprini VTE Risk Assessment Caprini VTE Risk Assessment: No/Low Risk (score <= 1) Caprini Risk Assessment Model: Point Value = 1 Point Value = 2 Point Value = 3 Point Value = 5 Age 41-60 Minor surgery BMI > 25 kg/m2 Swollen legs Varicose veins or History of unexplained or recurrent spontaneous Oral contraceptives or hormone replacement Sepsis (< 1 month) Serious lung disease, including pneumonia (< 1 month) Abnormal pulmonary function Acute myocardial infarction Congestive heart failure (< 1 month) History of inflammatory bowel disease Medical patient at bed rest Age 61-74 Arthroscopic surgery Major open surgery (> 45 min) Laparoscopic surgery (> 45 min) Malignancy Confined to bed (> 72 hours) Immobilizing plaster cast Central venous access Age >= 75 History of VTE Family history of VTE Factor V Leiden Prothrombin [id number] Lupus anticoagulant Anticardiolipin antibodies Elevated serum homocysteine Heparin-induced thrombocytopenia Other congenital or acquired thrombophilia Stroke (< 1 month) Elective arthroplasty Hip, pelvis, or leg fracture Acute spinal cord injury (< 1 month) Prophylaxis Regimen: Total Risk Factor Score Risk Level Prophylaxis Regimen 0-1 Low Early ambulation 2 Moderate Order ONE of the following: *Sequential Compression Device (SCD) *Heparin 5000 units SQ BID 3-4 Higher Order ONE of the following medications: *Heparin 5000 units SQ TID *Enoxaparin/Lovenox 40 mg SQ daily (WT < 150 kg, CrCl > 30 mL/min) *Enoxaparin/Lovenox 30 mg SQ daily (WT < 150 kg, CrCl > 10-29 mL/min) *Enoxaparin/Lovenox 30 mg SQ BID (WT < 150 kg, CrCl > 30 mL/min) AND/OR *Sequential Compression Device (SCD) 5 or more Highest Order ONE of the following medications: *Heparin 5000 units SQ TID (Preferred with Epidurals) *Enoxaparin/Lovenox 40 mg SQ daily (WT < 150 kg, CrCl > 30 mL/min) *Enoxaparin/Lovenox 30 mg SQ daily (WT < 150 kg, CrCl > 10-29 mL/min) *Enoxaparin/Lovenox 30 mg SQ BID (WT < 150 kg, CrCl > 30 mL/min) AND *Sequential Compression Device (SCD) Assessment and Plan - Assessment (1) Chest pain Code(s): R07.9 - Chest pain, unspecified Status: Acute (2) Tobacco abuse Code(s): Z72.0 - Tobacco use Status: Acute - Plan * Chest pain: Patient's discomfort seems atypical but he has risk factors. He has had serial cardiac enzymes and EKGs for ruling out purposes. He will be seen by Dr. Jacobo cardiology in the chest pain center. He will be given Toradol and breathing treatment. He will undergo a Urban protocol ETT and likely be discharged home if the stress test is nonischemic with instructions to follow-up with PCP, quit smoking, and return to ED for interval issues. * Tobacco abuse: Patient counseled on importance of smoking cessation. Patient is stable at this time. He is agreeable to this plan. H&P: Quality - VTE Deep Vein Thrombosis/Pulmonary Embolism Present on Admission: No
--- NOTE | 2018-05-17 10:48 | TR ---
Date Performed: 05/17/2018 Time Performed: 09:24:10 DOCTOR: Leonardo Jacobo DRUG LIST: CLINICAL HISTORY: REASON FOR TEST: REASON FOR ENDING: OBSERVATION: CONCLUSION: ALBER PROTOCOL ETT. THE PATIENT'S CONSTANT CP DID NOT WORSEN. TEST STOPPED AFTER EXC EEDING GOAL HR SECONDARY TO SOB AND LEG FATIGUE.Maximum JS=052 % Max HR Achieved=88.0% Maximum YW=040 /80 Total Exercise Time=10:30 COMMENTS: Conclusion: Normal treadmill exercise. No evidence of ischemia.
--- NOTE | 2018-05-17 11:33 | ECG ---
Date Performed: 05/17/2018 Time Performed: 04:05:02 PTAGE: 57 years EKG: SINUS BRADYCARDIA BORDERLINE ECG PREVIOUS TRACING : 03/17/2017 14.42 Since previous tracing, no significant change noted DOCTOR: Leonardo Jacobo Interpretating Date/Time 05/18/2018 06:51:46
--- NOTE | 2018-05-17 11:33 | ECG ---
Date Performed: 05/17/2018 Time Performed: 00:47:00 PTAGE: 57 years EKG: Sinus rhythm POSSIBLE LEFT ATRIAL ENLARGEMENT BORDERLINE ECG Since PREVIOUS TRACING , no significant change noted DOCTOR: Leonardo Jacobo Interpretating Date/Time 05/17/2018 11:32:54
--- NOTE | 2018-05-17 11:33 | ECG ---
Date Performed: 05/17/2018 Time Performed: 07:47:22 PTAGE: 57 years EKG: SINUS BRADYCARDIA POSSIBLE LEFT ATRIAL ENLARGEMENT BORDERLINE ECG PREVIOUS TRACING : 05/17/2018 04.05 Since previous tracing, no significant change noted DOCTOR: Leonardo Jacobo Interpretating Date/Time 05/17/2018 11:32:03
== END 2018-05-17 12:47 | disposition home or self-care (01) ==
LOC: NEPC 00:36 → NEDA 00:36 → NEPFCDU 00:36
DX: R11.0 Nausea; R06.02 Shortness of breath; R07.89 Other chest pain; F17.210 Nicotine dependence, cigarettes, uncomplicated